=== PATIENT | female | born 1955 | race Caucasian/White ===

== ENCOUNTER 2022-01-28 11:14 | Emergency (ER) | payer BC ==
[~2022-01-28] VITALS: Ht 160 cm; Wt 59.0 kg
[2022-01-28] MEDS ORDERED: CLARINEX-D 121 EACH PO (11:21)
== END 2022-01-28 14:47 | disposition home or self-care (01) ==
LOC: ER 11:14
DX: S82.891A Other fracture of right lower leg, initial encounter for closed fracture (principal); X37.1XXA Tornado, initial encounter; Y93.01 Activity, walking, marching and hiking; Y92.9 Unspecified place or not applicable; Y99.9 Unspecified external cause status